=== PATIENT | female | born 1935 | race Hispanic/Latino ===

== ENCOUNTER 2018-09-14 22:23 | Emergency (ER) | payer OTHER ==
[~2018-09-14 22:23] MED LIST: ALEN70TA10 PO; AMLO5TAB4 PO; ASPI-555 PO; BRIM5DRO4 OP; ERGO500014 PO; FERR324T4 PO; Folic Acid/Vitamin B Comp W-C PO; LEVO50TA11 PO; METR500T PO; ONDA4TAB9 PO; PANT40TA PO; PRED5DRO17 OP; WARF2.5T47 PO
[2018-09-14 23:15] LABS: APPEARANCE,URINE Clear (CLEAR); BILIRUBIN,URINE Negative (NEGATIVE); COLOR,URINE Yellow (YELLOW); GLUCOSE, URINE (UA) Negative (NEGATIVE); KETONES,URINE Negative (NEGATIVE); LEUKOCYTE ESTERASE ,URINE Trace (NEGATIVE); NITRATE,URINE Negative (NEGATIVE); OCCULT BLOOD,URINE Small (NEGATIVE); PH,URINE 6.5 (5.0-8.0); PROTEIN,URINE POS 2+ (NEGATIVE); UROBILINOGEN,URINE 0.2 mg/dL (0.2-1.0)
[2018-09-14 23:37] LABS: BACTERIA,URINE Many /HPF (None Seen); SQUAMOUS EPITHELIAL CELL,UR 0-2 /HPF (0-2)
[2018-09-14] MEDS ORDERED: ONDANSETRON HCL 4 MG/2 ML VIAL ONE (23:47)
[2018-09-14] MEDS ORDERED: ACETAMINOPHEN EXTRA STRENGTH 500 MG TABLET ONE (23:47)
== END 2018-09-15 00:50 | disposition home or self-care (01) ==
LOC: EDH 22:23
DX: S06.0X0A Concussion without loss of consciousness, initial encounter (principal); S00.83XA Contusion of other part of head, initial encounter; S60.221A Contusion of right hand, initial encounter; R11.10 Vomiting, unspecified; E78.5 Hyperlipidemia, unspecified; I10 Essential (primary) hypertension; E07.9 Disorder of thyroid, unspecified; Z91.041 Radiographic dye allergy status; Z88.1 Allergy status to other antibiotic agents; Z88.8 Allergy status to other drugs, medicaments and biological substances; Z98.890 Other specified postprocedural states; W01.198A Fall on same level from slipping, tripping and stumbling with subsequent striking against other object, initial encounter; Y93.89 Activity, other specified; Y92.89 Other specified places as the place of occurrence of the external cause; Y99.8 Other external cause status
CPT/HCPCS: 70450; 72125; 73130; 81001; 93005; 99284; J2405

== ENCOUNTER 2025-07-03 18:07 | Emergency (ER) | payer OTHER ==
[~2025-07-03] VITALS: Ht 149.9 cm; Wt 55.3 kg
[~2025-07-03 18:07] MED LIST changes: -ALEN70TA10 PO; -AMLO5TAB4 PO; -ASPI-555 PO; -BRIM5DRO4 OP; +CLON0.1T PO; +DORZ10DR10 OP; -ERGO500014 PO; -FERR324T4 PO; +FOLI1TAB82 PO; -Folic Acid/Vitamin B Comp W-C PO; +HYDR100T15 PO; +LABE300T4 PO; +LEVO50CA5 PO; -LEVO50TA11 PO; -METR500T PO; -ONDA4TAB9 PO; -PANT40TA PO; -PRED5DRO17 OP; +TRAV2.5D6 OP; -WARF2.5T47 PO
--- NOTE | 2025-07-03 18:36 | ERN ---
ED Note History of Present Illness Stated Complaint: HYPERTENSION Chief Complaint: Hypertension Time Seen by MD: 18:10 Time Seen by Midlevel: 18:10 Dictation: The patient is an 89-year-old female with history of hypertension who presents to the emergency department with complains of elevated blood pressure. patient however denies any chest pain, shortness of breath, dizziness, or headache. Reports her PCP change her amlodipine to hydralazine a month ago and she has been having problems with her blood pressure since. Reports compliant with her medications. Allergies: Coded Allergies: ciprofloxacin (Verified Allergy, Unknown, 05/01/18) Home Meds Reported Medications Dorzolamide HCl/Timolol Maleat (Dorzolamide-Timolol Eye Drops) 22.3 Mg-6.8 Mg/Ml Drops, 1 DROP OP BID, #10 ML 0 Refills 10/02/24 Travoprost (Travoprost) 0.004 % Drops, 1 DROP OP HS for 30 Days, #2.5 ML 0 Refills 10/02/24 Levothyroxine Sodium (Levothyroxine) 50 Mcg Capsule, 1 CAP PO DAILY for 30 Days, #30 CAP 0 Refills 10/02/24 Vit B Cmplx No3/FA/C/Biot/Zinc (Nephplex Rx Tablet) 1 Mg-60 Mg-300 Mcg-12.5 Mg Tablet, 1 TAB PO DAILY for 30 Days, #30 TAB 0 Refills 10/02/24 Clonidine HCl (Clonidine HCl) 0.1 Mg Tablet, 0.1 MG PO TID, TAB 10/02/24 Labetalol HCl (Labetalol HCl) 300 Mg Tablet, 1 TAB PO BID for 30 Days, #60 TAB 0 Refills 10/02/24 Hydralazine HCl (Hydralazine HCl) 100 Mg Tablet, 1 TAB PO TID for 30 Days, #90 TAB 0 Refills 10/02/24 Past Medical History Past Medical History: Hypertension Surgical History: Surgical History Other: KNEE SURGERY RN Note Reviewed/Agreed w/PFSH: Yes Review of System Dictation Constitutional: Negative for fever,chills, and weight loss Eyes: Negative for injury, pain,redness, and discharge ENT: Negative for injury,pain or swelling Cardiovascular: Negative for chest pain, palpitations, and edema Respiratory: Negative for shortness of breath, cough, and wheezing, Abdomen/GI: Negative for abdominal pain, nausea, vomiting, diarrhea, and constipation Back: Negative for injury and pain : Negative for injury, bleeding and discharge MS/Extremity: Negative for injury and deformity Skin: Negative for rash, and discoloration Neuro: Negative for headache, weakness, numbness, tingling, and seizure Psych: Negative for suicide ideation, homicidal ideation, and hallucinations Initial Vital Sign VS Vital Signs Date Time Temp Pulse Resp B/P (MAP) Pulse Ox O2 Delivery O2 Flow Rate FiO2 07/03/25 18:08 63 20 180/90 97 Room Air 07/03/25 18:34 98.2 0 21 Physical Exam Dictation Vital Signs reviewed General Appearance: Alert, oriented x 3, no acute distress, well developed, nourished. Head and Face: non-traumatic. Eyes: PERRL, pink conjunctivas, eyelid no trauma, anterior chamber with arcus senilis. Ears: Pinnas intact and no signs of trauma or erythema ear canals clear and no discharge TM no erythema Nose: No discharge, no bleeding. Oropharynx: Mouth normal, tongue pink. pharynx clear,no erythema, tonsils no exudates, no abscesses noted, mucous membrane moist Neck: Supple, non-tender, no thyromegaly, no masses, no JVD, no bruits Breast:Deferred Chest:No tenderness, no crepitus, no paradoxical movement, no retractions Lungs:Clear, well-ventilated, symmetric, no rales, no wheezing, no rhonchi, no stridor, good breath sounds bilaterally Heart: Regular rate, regular rhythm, no murmur, no gallops Vascular: no peripheral edema, Abdomen: Soft, positive bowel sounds, nondistended, no guarding, nontender, no rebound, no masses no hepatomegaly, no splenomegaly, no Donahue's sign, no hernias. Rectal: Deferred Genital: Deferred Neurological: Normal speech, motor function intact, sensory function intact Musculoskeletal: Neck nontender, full range of motion, back nontender, full range of motion, Extremities: nontender, full range of motion Skin: Color pink, dry, no turgor, no rash, no lacerations, no abrasions, no contusions. Lymphatic: Deferred Results (Laboratory/Radiology) Laboratory/Radiology Laboratory Tests Test 07/03/25 18:38 10/19/25 18:40 White Blood Count 8.1 K/uL (4.8-10.8) Red Blood Count 4.12 MIL/uL (4.00-5.50) Hemoglobin 13.0 g/dL (12.0-16.0) Hematocrit 38.9 % (36-48) Mean Corpuscular Volume 94.4 fL (79-99) Mean Corpuscular Hemoglobin 31.6 pg (27.0-33.0) Mean Corpuscular Hemoglobin Concent 33.4 g/dL (32.0-36.0) Red Cell Distribution Width 13.7 % (11.0-15.5) Platelet Count 263 K/uL (130-400) Mean Platelet Volume 10.1 fL (7.5-10.5) Immature Granulocyte % (Auto) 0.5 % (0-1) Neutrophils (%) (Auto) 73.7 % (40.0-77.0) Lymphocytes (%) (Auto) 15.6 % (21.0-51.0) L Monocytes (%) (Auto) 7.9 % (3.0-13.0) Eosinophils (%) (Auto) 1.4 % (0.0-8.0) Basophils (%) (Auto) 0.9 % (0.0-5.0) Neutrophils # (Auto) 6.0 K/uL (1.8-7.7) Lymphocytes # (Auto) 1.3 K/uL (1.0-4.8) Monocytes # (Auto) 0.6 K/uL (0.1-1.0) Eosinophils # (Auto) 0.11 K/uL (0.00-0.70) Basophils # (Auto) 0.07 K/uL (0.00-0.20) Absolute Immature Granulocyte (auto 0.04 K/uL (0-1) Nucleated Red Blood Cells 0.0 % (0.0-0.19) Sodium Level 143 mmol/L (136-145) Potassium Level 3.7 mmol/L (3.5-5.1) Chloride Level 106 mmol/L (101-111) Carbon Dioxide Level 27 mmol/L (21-32) Blood Urea Nitrogen 19 mg/dL (7-18) H Creatinine 0.8 mg/dL (0.5-1.0) Glomerular Filtration Rate Calc 71 mL/min (>90) Random Glucose 115 mg/dL (70-105) H Total Calcium 9.8 mg/dL (8.5-10.1) Total Creatine Kinase 97 U/L (21-232) Troponin I High Sensitivity 25 ng/L (4-50) Urine Color COLORLESS (YELLOW) Urine Appearance CLEAR (CLEAR) Urine pH 7.5 (5.0-8.0) Urine Specific [place] 1.007 (1.001-1.031) Urine Protein 200 mg/dL (NEGATIVE) H Urine Glucose (UA) NEGATIVE mg/dL (NEGATIVE) Urine Ketones NEGATIVE mg/dL (NEGATIVE) Urine Occult Blood NEGATIVE (NEGATIVE) Urine Nitrate NEGATIVE (NEGATIVE) Urine Bilirubin NEGATIVE mg/dL (NEGATIVE) Urine Urobilinogen 0.2 mg/dL (0.2-1.0) Urine Leukocyte Esterase NEGATIVE Ghazal/uL Urine RBC 2-5 /HPF (0-1) H Urine WBC 2-5 /HPF (0-1) H Urine Bacteria RARE /HPF (None Seen) REASON: sob ORDERING PHYSICIAN: JUAN MIGUEL WINCHESTER [employer] PROCEDURE: CXR1VW - CHEST 1VW EXAM: CR Chest, 1 View. CLINICAL HISTORY: sob COMPARISON: None provided. FINDINGS: LUNGS: Left basilar/retrocardiac airspace disease may reflect atelectasis and/or an infectious process. Lungs are otherwise clear. PLEURAL SPACES: No pleural effusion or pneumothorax. MEDIASTINUM: The cardiomediastinal silhouette is within normal limits. BONES: No aggressive appearing osseous lesion seen. IMPRESSION: 1. Left basilar/retrocardiac airspace disease, possibly representing atelectasis and/or infection. /[place] Labs Reviewed?: Yes EKG: (+) rhythm (Sinus rhythm) EKG Comment: Date:07/03/2025 Time:1842 Ventricular rate:65 MI interval:173 QRS duration:66 QT/QTc:439/458 EKG interpretation:sinus rhythm Reviewed by ED Attending No Stemi ED Course ED Course Orders Procedure Category Date Status Time Cbc With Differential LAB 07/03/25 Complete 18:21 Troponin I High LAB 07/03/25 Complete Sensitivity 18:21 12 Lead Ekg Tracing- EKG 07/03/25 Complete Technical 18:21 Creatine Kinase, Total LAB 07/03/25 Complete 18:21 Chest 1vw RAD 07/03/25 Resulted 18:21 Basic Metabolic Panel LAB 07/03/25 Complete 18:21 Hydralazine 20mg Inj PHA 07/03/25 Complete (Apresoline 20mg In 19:00 Urinalysis Profile LAB 07/03/25 Complete 18:39 Current Medications Medications (Trade) Dose Ordered Sig/Raj Route PRN Reason Start Time Stop Time Status Last Admin Dose Admin Hydralazine HCl (APRESOLine 20MG INJ) 10 mg ONCE ONCE IV 07/03/25 19:00 07/03/25 19:01 DC 07/03/25 18:56 Vital Signs Date Time Temp Pulse Resp B/P (MAP) Pulse Ox O2 Delivery O2 Flow Rate FiO2 07/03/25 20:21 98.1 78 19 174/68 98 Room Air* 0 21 07/03/25 19:34 98.2 76 14 177/70 97 Room Air* 0 21 07/03/25 19:10 98.2 75 23 182/63 97 Room Air* 0 21 07/03/25 18:56 98.2 70 25 213/71 98 Room Air* 0 21 07/03/25 18:56 70 213/71 07/03/25 18:34 98.2 71 25 199/69 95 Room Air* 0 21 07/03/25 18:08 63 20 180/90 97 Room Air Medical Decision Making MDM The patient is an 89-year-old female with history of hypertension who presents to the emergency department with complains of elevated blood pressure. patient however denies any chest pain, shortness of breath, dizziness, or headache. Reports her PCP change her amlodipine to hydralazine a month ago and she has been having problems with her blood pressure since. Reports compliant with her medications. CBC showed no leukocytosis, no anemia, chemistry showed no electrolyte imbala nce, creatine of 0.8, negative troponin. Xray showed no infiltrates. The patient received 10mg of hydralazine IV and blood pressure decrease from 213 systolic to 160s. Patient continue asymptomatic. Patient is advice to increase her losartan to 100mg daily. Patient continues in no acute distress, non toxic appearance, stable vital signs. Differential diagnosis:,hypertension emergency, hypertension urgency, electrolyte imbalance Need for hospitalization: Patient does not meet criteria for hospitalization. There are no social concerns with this patient. DX & DISP Disposition: Discharge Departure Impression: Primary Impression: Hypertension Condition: Stable Additional Instructions: Your labs where unremarkable. We have lowered your blood pressure in the emergency department. You can increase your losartan to 100mg daily. Please follow up with your primary doctor in 1-2 days. If anything worsens or changes please return to ER. FOLLOW-UP WITH PRIMARY CARE PROVIDER IN 1 TO 2 DAYS. TAKE MEDICATIONS DIRECTED HERE IN THE EMERGENCY ROOM. OKAY TO CONTINUE HOME MEDICATIONS UNLESS OTHERWISE DISCUSSED DURING YOUR VISIT IN THE EMERGENCY ROOM TODAY. RETURN TO YOUR NEAREST EMERGENCY ROOM IF SYMPTOMS WORSEN OR IF THERE IS NO IMPROVEMENT. CALL 911 IF YOU NEED IMMEDIATE ASSISTANCE. TAKE TYLENOL [id number] NEEDED AND IF NO CONTRAINDICATIONS ARE PRESENT. INCREASE ORAL HYDRATION. A WOUND CULTURE OR URINE CULTURE WAS ORDERED HERE IN THE EMERGENCY ROOM DEPARTMENT PLEASE FOLLOW-UP WITH PRIMARY CARE PROVIDER AND ADVISE THEM TO GET REPEAT PORTS FROM OUR FACILITY. IF YOU HAD ANY SOM WRAP/SPLINTS THAT WERE APPLIED HERE, PLEASE DO NOT REMOVE THEM UNTIL YOU SEE YOUR PRIMARY CARE OR SPECIALTY. Referrals: LAILA QUIGLEY MD (PCP) Time of Disposition: 19:37 I have reviewed the case, and I agree with, Diagnosis and Plan JUAN MIGUEL WINCHESTER Jul 03, 2025 18:35 HALEIGH KENNEDY DO Jul 04, 2025 06:58
[2025-07-03 18:47] LABS: IMMATURE GRANULOCYTE ABSOLUTE 0.04 K/uL (0-1); NUCLEATED RED BLOOD CELLS 0.0 % (0.0-0.19); PLATELET COUNT (AUTO) 263 K/uL (130-400); RED BLOOD CELL COUNT(AUTO) 4.12 MIL/uL (4.00-5.50); RED CELL DISTRIBUTION WIDTH 13.7 % (11.0-15.5); WHITE BLOOD COUNT (AUTO) 8.1 K/uL (4.8-10.8)
[2025-07-03 18:48] LABS: APPEARANCE,URINE CLEAR (CLEAR); GLUCOSE, URINE (UA) NEGATIVE (NEGATIVE); LEUKOCYTE ESTERASE ,URINE NEGATIVE Leu/uL (NEGATIVE); NITRATE,URINE NEGATIVE (NEGATIVE); OCCULT BLOOD,URINE NEGATIVE (NEGATIVE)
[2025-07-03 18:49] LABS: ADD UA MICROSCOPIC YES
[2025-07-03 18:54] LABS: CREATININE 0.8 mg/dL (0.5-1.0); GLOMERULAR FILTR. RATE CALC 71.0 mL/min (>90); GLUCOSE,RANDOM 115.0 mg/dL (70-105); SODIUM SERUM 143.0 mmol/L (136-145); UREA NITROGEN, BLOOD 19.0 mg/dL (7-18)
[2025-07-03 18:59] LABS: CREATINE KINASE, TOTAL 97.0 U/L (21-232)
--- NOTE | 2025-07-03 19:02 | HMCIMG ---
EXAM: CR Chest, 1 View. CLINICAL HISTORY: sob COMPARISON: None provided. FINDINGS: LUNGS: Left basilar/retrocardiac airspace disease may reflect atelectasis and/or an infectious process. Lungs are otherwise clear. PLEURAL SPACES: No pleural effusion or pneumothorax. MEDIASTINUM: The cardiomediastinal silhouette is within normal limits. BONES: No aggressive appearing osseous lesion seen. IMPRESSION: 1. Left basilar/retrocardiac airspace disease, possibly representing atelectasis and/or infection. /[place]
[2025-07-03 20:21] VITALS: BP 174/68; PULSE 78; RESP 19; TEMP 98; O2SAT 98
--- NOTE | 2025-07-04 02:32 | EKG ---
[facility] Test Date: 2025-07-03 Test Time: 18:42:26 Pat Name: MYKE MAYS Department: ED Room: Gender: F Flux Tube Attendant: [id number] : 1935 Requested By: JUAN MIGUEL WINCHESTER Order Number: [id number] Reading MD: Stacey Quinones Measurements Intervals [place] Rate: 65 P: 13 ND: 173 QRS: 3 QRSD: 66 T: 21 QT: 439 QTc: 458 Interpretive Statements Sinus rhythm Compared to ECG 10/02/2024 23:00:23 Myocardial infarct finding no longer present Electronically Signed On 07-04-2025 20:15:19 CDT by Stacey Quinones Please click the below link to view image of tracing.
== END 2025-07-03 20:21 | disposition home or self-care (01) ==
LOC: EDH 18:07
DX: I10 Essential (primary) hypertension (principal); Z88.1 Allergy status to other antibiotic agents; Z79.899 Other long term (current) drug therapy; Z79.890 Hormone replacement therapy; Z98.890 Other specified postprocedural states
CPT/HCPCS: 99285; 96374; 82550; 71045; 84484; 80048; 85025; 81001; 36415; 93005; J0360